=== PATIENT | female | born 1955 | race Caucasian/White ===

== ENCOUNTER 2018-02-06 16:08 | Emergency (ER) | payer BC ==
[2018-02-06 16:27] VITALS: BP 154/68; PULSE 85; TEMP 100; BMI 46.2
--- NOTE | 2018-02-06 16:33 | PDOC ---
Rapid Medical Evaluation Chief Complaint: Respiratory Time Seen by Provider: 02/06/18 16:30 Medical Evaluation: Allergies Allergy/AdvReac Type Severity Reaction Status Date / Time No Known Allergies Allergy Verified 02/06/18 16:24 Vital Signs Temp Pulse Resp BP Pulse Ox 100 F H 85 20 154/68 96 02/06/18 16:24 02/06/18 16:24 02/06/18 16:24 02/06/18 16:24 02/06/18 16:24 02/06/18 16:30 complain: Patient with h/o HTN on meds present with complains of 1 week h/o non- productive cough, chest tightness and fever. report saw PCP today and had fever of 102F and was told by PCP to come here exam: pt in no NAD. moderate diffused wheezing on lung exam. heart: RRR. abd: soft NT/ND order: chest x-rays, Tylenol 975mg PO for fever f/u patient will proceed to ED for further evaluation Discharge Disposition - Diagnosis Cough - Referrals - Patient Instructions - Post Discharge Activity
[2018-02-06] MEDS ORDERED: ACETAMINOPHEN 325 MG TABLET (FP) PO ONE (16:34)
[2018-02-06] MEDS ORDERED: ACETAMINOPHEN 325 MG TABLET (FP) ONE (18:37)
--- NOTE | 2018-02-06 20:38 | PDOC ---
History of Present Illness - General Chief Complaint: Respiratory Stated Complaint: PCP SENT/CHEST PAIN Time Seen by Provider: 02/06/18 16:30 History Source: Patient Exam Limitations: No Limitations - History of Present Illness Initial Comments: 02/06/18 20:32 Best Contact: PCP:Dr. Hernandez Pmhx: Hypertension Pshx: 2014/2015 right hip replacement, left hip replacement respectively/[place] Dr. Nino Oliver Allergies:NKDA FH:0 Social Hx: Cigarettes/ 0 Alcohol/ 0 Drugs/0 LMP:N/A 62-year-old female presents to the emergency department complaining of subjective fever/chills, body aches with productive coughing 1 week. Patient was seen by her PMD's associate today with a temperature of either 100.3 or 102.3 but was sent to the emergency department for chest x-ray. Patient states she feels a lot better since arriving to the emergency department and denies chills, headache, dizziness, lightheadedness, facial pains, earache, sore throat , nasal congestion, neck stiffness/pain, back pain, chest pain, shortness of breath, abdominal pains, flank pains, urinary symptoms: Frequency/urgency/ hesitancy, hematuria. Patient states she was given Tylenol on arrival to the ER and feels fine. 02/06/18 20:45 Timing/Duration: reports: just prior to arrival Past History - Past Medical History Allergies/Adverse Reactions: Allergies Allergy/AdvReac Type Severity Reaction Status Date / Time No Known Allergies Allergy Verified 02/06/18 16:24 Home Medications: Ambulatory Orders Olmesartan Medoxomil [Benicar -] 40 mg PO DAILY 01/13/15 Ascorbate Calcium [Vitamin C] 500 mg PO BID 03/22/16 Folic Acid 1 mg PO DAILY 03/22/16 Metoprolol Succinate [Toprol XL -] 25 mg PO DAILY #30 tab.sr.24h 03/30/16 Aspirin [ASA -] 325 mg PO DAILY@0800 tablet 04/08/16 Ferrous Sulfate [Feosol] 325 mg PO TID #90 tablet 04/08/16 Multivitamins [Multivit ([facility] Formulary)] 1 tab PO DAILY tab 04/08/16 Oxycodone HCl/Acetaminophen [Percocet 5-325 mg Tablet] 1 - 2 tab PO Q4H PRN #60 tablet MDD 8 04/08/16 Pantoprazole Sodium [Protonix -] 40 mg PO DAILY #40 tablet.ec 04/08/16 Sennosides/Docusate Sodium [Pericolace -] 1 tablet PO BID tablet 04/08/16 oxyCODONE SR [Oxycontin] 10 mg PO BID #30 tab.er.12h MDD 2 04/08/16 traMADol HCL [Ultram -] 50 mg PO Q4H PRN #90 tablet MDD 6 04/08/16 Anemia: No Asthma: No Cancer: No Cardiac Disorders: Yes (PRIOR TO R.THR-01/2015 HEART STOPPED SECONDARY TO RESPIRATORY ARREST 01/2015,) CVA: No COPD: No CHF: No (-CARDIAC WORK-UP NEGATIVE) Dementia: No Diabetes: Yes (DIET CONTROLLED) GI Disorders: No Disorders: No HTN: Yes Hypercholesterolemia: No Kidney Stones: Yes Liver Disease: No Seizures: No Thyroid Disease: No - Surgical History Abdominal Surgery: No Appendectomy: No Cardiac Surgery: No Cholecystectomy: No Lung Surgery: No Neurologic Surgery: No Orthopedic Surgery: Yes (06/2015 RIGHT HIP REPLACEMENT @ [facility]) - Suicide/Smoking/Psychosocial Hx Smoking History: Former smoker Have you smoked in the past 12 months: No Number of Cigarettes Smoked Daily: 0 If you are a former smoker, when did you quit?: OVER 35 YEARS AGO Information on smoking cessation initiated: No Hx Alcohol Use: No Drug/Substance Use Hx: No Substance Use Type: None Hx Substance Use Treatment: No Review of Systems - Review of Systems Able to Perform ROS?: Yes Comments:: 02/06/18 20:36 CONSTITUTIONAL: +fever/chills, generalized malaise Absent: diaphoresis, malaise, loss of appetite HEENT: Absent: rhinorrhea, nasal congestion, throat pain, throat swelling, difficulty swallowing, mouth swelling, ear pain, eye pain, visual Changes CARDIOVASCULAR: Absent: chest pain, loss of consciousness, palpitations, irregular heart rate, peripheral edema RESPIRATORY: +cough Absent: shortness of breath, dyspnea with exertion, orthopnea, wheezing, stridor , hemoptysis GASTROINTESTINAL: Absent: abdominal pain, abdominal distension, nausea, vomiting, diarrhea, constipation, melena, hematochezia GENITOURINARY: Absent: dysuria, frequency, urgency, hesitancy, hematuria, flank pain, genital pain MUSCULOSKELETAL: Absent: myalgia, arthralgia, joint swelling SKIN: Absent: rash, itching, pallor HEMATOLOGIC/IMMUNOLOGIC: Absent: easy bleeding, easy bruising, lymphadenopathy, frequent infections ENDOCRINE: Absent: unexplained weight gain, unexplained weight loss, heat intolerance, cold intolerance NEUROLOGIC: Absent: headache, focal weakness or paresthesias, dizziness, unsteady gait, seizure, mental status changes, bladder or bowel incontinence PSYCHIATRIC: Absent: anxiety, depression, suicidal or homicidal ideation, hallucinations. Is the patient limited Malay proficient: No *Physical Exam - Vital Signs Last Vital Signs Temp Pulse Resp BP Pulse Ox 100 F H 85 20 154/68 96 02/06/18 16:24 02/06/18 16:24 02/06/18 16:24 02/06/18 16:24 02/06/18 16:24 - Physical Exam Comments: 02/06/18 20:38 GENERAL: Well developed, well nourished. Awake and alert. No acute distress. HEENT: Normocephalic, atraumatic. PERRLA, EOMI. No conjunctival pallor. Sclera are non- icteric. Moist mucous membranes. Oropharynx is clear. NECK: Supple. Full ROM. No JVD. Carotid pulses 2+ and symmetric, without bruits. No thyromegaly. No lymphadenopathy. CARDIOVASCULAR: Regular rate and rhythm. No murmurs, rubs, or gallops. Distal pulses are 2+ and symmetric. PULMONARY: No evidence of respiratory distress. Lungs clear to auscultation bilaterally. No wheezing, rales or rhonchi. ABDOMINAL: Soft. Non-tender. Non-distended. No rebound or guarding. No organomegaly. Normoactive bowel sounds. MUSCULOSKELETAL Normal range of motion at all joints. No bony deformities or tenderness. No CVA tenderness. EXTREMITIES: No cyanosis. No clubbing. No edema. No calf tenderness. SKIN: Warm and dry. Normal capillary refill. No rashes. No jaundice. NEUROLOGICAL: Alert, awake, appropriate. Cranial nerves 2-12 intact. No deficits to light touch and temperature in face, upper extremities and lower extremities. No motor deficits in the in face, upper extremities and lower extremities. Normoreflexic in the upper and lower extremities. Normal speech. Toes are down- going bilaterally. Gait is normal without ataxia. PSYCHIATRIC: Cooperative. Good eye contact. Appropriate mood and affect. ED Treatment Course - Medications Given in the ED: ED Medications Discontinued Medications Generic Name Dose Route Start Last Admin Trade Name Carmelita PRN Reason Stop Dose Admin Acetaminophen 975 mg 02/06/18 16:34 02/06/18 18:42 Tylenol - PO 02/06/18 16:35 975 mg ONCE ONE Administration Progress Note - Progress Note Progress Note: 2038hrs: Patient adamantly refuses any blood work, IV, EKG. Patient states she only wanted a chest x-ray. Chest x-ray was clear except for old healed right- sided sixth and seventh rib patient states she feels fine now. Temperature/oral 98.1, taken by me. Patient was informed she has bronchitis and states she would rather follow with her PMD or return back to the ER for recurrent symptoms or any concerns. Patient is with her son Lázaro. Patient's son agrees with her plan. *DC/Admit/Observation/Transfer Diagnosis at time of Disposition: Cough, Bronchitis - Discharge Dispostion Disposition: ELOPED Condition at time of disposition: Stable Decision to Admit order: No - Referrals Referrals: Reuben Albrecht MD [Primary Care Provider] - - Patient Instructions Printed Discharge Instructions: DI for Acute Bronchitis Additional Instructions: You are refusing any blood work, EKG and observation in the emergency department. - Post Discharge Activity
== END 2018-02-06 22:03 | disposition left against medical advice (07) ==
LOC: JER 16:08
DX: J40 Bronchitis, not specified as acute or chronic (principal); R05 Cough
CPT/HCPCS: 71046-TC-FY; 99281-25

== ENCOUNTER 2020-04-04 12:44 | Emergency (ER) | payer BC, OTHER ==
[2020-04-04 12:55] VITALS: BMI 47.8
--- NOTE | 2020-04-04 13:08 | PDOC ---
History of Present Illness - General Chief Complaint: Vomiting/Diarrhea Stated Complaint: SENT BY DOC Time Seen by Provider: 04/04/20 13:08 - History of Present Illness Initial Comments: HPI: 64yo F with PMH of DM, HTN sent by her primary care provider for evaluation of fever, chills, nausea, vomiting, and diarrhea. Patient was in her usual state of health until she measured a fever of 102 this morning for which she took tylen ol. Has felt shaky and chattering of teeth. Endorses three episodes of biliious nonbloody vomiting as well as nonbloody brown loose stools. Without abdominal pain. Tolerated water, but not solid food. No cough, dysuria, or hematuria. Has had sick contacts (her and daughter) but they do not have the same symptoms as her. Does not think she ate anything unusual. No recent travel. PCP: Dr. Albrecht ROS: Constitutional: +fever, +chills HEENT: no throat pain, no dysphagia Cardiovascular: no chest pain, no palpitations Respiratory: no cough, no shortness of breath Gastrointestinal: +vomiting, +diarrhea Genitourinary: no dysuria, no hematuria Musculoskeletal: no myalgia, no arthralgia Skin: no rash, no itching Neurologic: no headache, no weakness Psych: no agitation, no anxiety PE: General: Awake, alert, and fully oriented, in no acute distress Head: No signs of trauma Eyes: EOMI, sclera anicteric ENT: Moist mucus membranes Neck: Normal ROM, supple Lungs: Lungs clear, Normal breath sounds Cardio: Regular rhythm, S1 and S2 present Abdomen: Soft, nontender. No guarding, no rebound, no masses, No CVA tenderness Extremities: Normal range of motion, Distal pulses present Skin: Warm, Dry, normal turgor Neurologic: Cranial nerves II through XII grossly intact. Normal speech ED Course/MDM: DDX including but not limited to UTI, COVID-19, gastroenteritis, DKA/HHS/hyperglycemia, PNA, anemia, metabolic derangement Labs CXR Fluids Zofran 04/04/20 13:08 CBC WBC 8.7 K/mm3 (4.0-10.0) 04/04/20 13:55 RBC 3.64 M/mm3 (3.60-5.2) 04/04/20 13:55 Hgb 11.0 GM/dL (10.7-15.3) 04/04/20 13:55 Hct 32.6 % (32.4-45.2) 04/04/20 13:55 MCV 89.6 fl (80-96) 04/04/20 13:55 MCH 30.3 pg (25.7-33.7) 04/04/20 13:55 MCHC 33.8 g/dl (32.0-36.0) 04/04/20 13:55 RDW 15.3 % (11.6-15.6) 04/04/20 13:55 Plt Count 113 K/MM3 (134-434) L 04/04/20 13:55 MPV 8.8 fl (7.5-11.1) 04/04/20 13:55 Absolute Neuts (auto) 7.9 K/mm3 (1.5-8.0) 04/04/20 13:55 Neutrophils % 90.9 % (42.8-82.8) H 04/04/20 13:55 Lymphocytes % 2.5 % (8-40) L D 04/04/20 13:55 Monocytes % 5.5 % (3.8-10.2) 04/04/20 13:55 Eosinophils % 0.2 % (0-4.5) 04/04/20 13:55 Basophils % 0.9 % (0-2.0) 04/04/20 13:55 Nucleated RBC % 0 % (0-0) 04/04/20 13:55 No leukocytosis or anemia CMP Sodium 135 mmol/L (136-145) L 04/04/20 13:55 Potassium 5.8 mmol/L (3.5-5.1) H 04/04/20 13:55 Chloride 105 mmol/L (98-107) 04/04/20 13:55 Carbon Dioxide 21 mmol/L (21-32) 04/04/20 13:55 Anion Gap 9 MMOL/L (8-16) 04/04/20 13:55 BUN 31.9 mg/dL (7-18) H 04/04/20 13:55 Creatinine 1.8 mg/dL (0.55-1.3) H 04/04/20 13:55 Est GFR (CKD-EPI)AfAm 34.12 04/04/20 13:55 Est GFR (CKD-EPI)NonAf 29.44 04/04/20 13:55 POC Glucometer 340 UNITS (80-120) 04/04/20 13:11 Random Glucose 335 mg/dL (74-106) H 04/04/20 13:55 Calcium 8.7 mg/dL (8.5-10.1) 04/04/20 13:55 Total Bilirubin 0.8 mg/dL (0.2-1) 04/04/20 13:55 AST 32 U/L (15-37) 04/04/20 13:55 ALT 18 U/L (13-61) 04/04/20 13:55 Alkaline Phosphatase 79 U/L (45-117) 04/04/20 13:55 Total Protein 6.8 g/dl (6.4-8.2) 04/04/20 13:55 Albumin 3.1 g/dl (3.4-5.0) L 04/04/20 13:55 Beta-Hydroxybutyrate 2.5 mg/dL (0.2-2.8) 04/04/20 13:55 K elevated, however hemolyzed; will repeat BMP Cr baseline No transaminitis Normal beta-hydroxybutyrate Laboratory Tests 04/04/20 13:20 Urine Color Yellow Urine Appearance Turbid Urine pH 5.0 Ur Specific Harlan 1.018 Urine Protein 3+ H Urine Glucose (UA) Trace Urine Ketones Negative Urine Blood 1+ H Urine Nitrite Positive H Urine Bilirubin Negative Urine Urobilinogen 0.2 Ur Leukocyte Esterase 2+ H Urine WBC (Auto) 3963 Urine RBC (Auto) 73 Urine Casts (Auto) 3 U Epithel Cells (Auto) >36 Urine Bacteria (Auto) >9,000 UA with infection; covered with rocephin Vital Signs Temp Pulse Resp BP Pulse Ox 98.7 F 95 H 18 135/69 95 04/04/20 14:30 04/04/20 12:52 04/04/20 12:52 04/04/20 12:52 04/04/20 12:52 Repeat temperature improved Pending po challenge Pending repeat BMP 04/04/20 16:[address] Albrecht who would like patient to follow up with him next week Patient amenable to this plan 04/04/20 17:20 Laboratory Tests 04/04/20 16:00 Sodium 137 Potassium 5.5 H Chloride 107 Carbon Dioxide 22 Anion Gap 8 BUN 31.0 H Creatinine 1.8 H Est GFR (CKD-EPI)AfAm 34.12 Est GFR (CKD-EPI)NonAf 29.44 Random Glucose 283 H Calcium 8.5 Repeat BMP with elevated K Lokelma given for hyperkalemia Patient passed po challenge Patient feeling better and asking to go home To follow up with primary care physician Antibiotics sent to pharmacy Return precautions Stable for discharge Past History - Medical History Allergies/Adverse Reactions: Allergies Allergy/AdvReac Type Severity Reaction Status Date / Time No Known Allergies Allergy Verified 04/04/20 12:51 Home Medications: Ambulatory Orders Olmesartan Medoxomil [Benicar -] 40 mg PO DAILY 01/13/15 Ascorbate Calcium [Vitamin C] 500 mg PO BID 03/22/16 Folic Acid 1 mg PO DAILY 03/22/16 Metoprolol Succinate [Toprol XL -] 25 mg PO DAILY #30 tab.sr.24h 03/30/16 Aspirin [ASA -] 325 mg PO DAILY@0800 tablet 04/08/16 Ferrous Sulfate [Feosol] 325 mg PO TID #90 tablet 04/08/16 Multivitamins [Multivit ([facility] Formul[facility])] 1 tab PO DAILY tab 04/08/16 Oxycodone HCl/Acetaminophen [Percocet 5-325 mg Tablet] 1 - 2 tab PO Q4H PRN #60 tablet MDD 8 04/08/16 Pantoprazole Sodium [Protonix -] 40 mg PO DAILY #40 tablet.ec 04/08/16 Sennosides/Docusate Sodium [Pericolace -] 1 tablet PO BID tablet 04/08/16 oxyCODONE SR [Oxycontin] 10 mg PO BID #30 tab.er.12h MDD 2 04/08/16 traMADol HCL [Ultram -] 50 mg PO Q4H PRN #90 tablet MDD 6 04/08/16 Azithromycin [Zithromax -] 250 mg PO UTDICT #6 tab 02/06/18 Cephalexin [Keflex] 500 mg PO BID #14 capsule 04/04/20 Anemia: No Asthma: No Cancer: No Cardiac Disorders: Yes (PRIOR TO R.THR-01/2015 HEART STOPPED SECONDARY TO RESPIRA TORY ARREST 01/2015,) CVA: No COPD: No CHF: No (-CARDIAC WORK-UP NEGATIVE) Dementia: No Diabetes: Yes (DIET CONTROLLED) GI Disorders: No Disorders: No HTN: Yes Hypercholesterolemia: No Kidney Stones: Yes Liver Disease: No Seizures: No Thyroid Disease: No - Surgical History Abdominal Surgery: No Appendectomy: No Cardiac Surgery: No Cholecystectomy: No Lung Surgery: No Neurologic Surgery: No Orthopedic Surgery: Yes (06/2015 RIGHT HIP REPLACEMENT @ [facility]) - Reproductive History Is Patient Now?: No - Psycho-Social/Smoking History Smoking History: Former smoker Have you smoked in the past 12 months: No Number of Cigarettes Smoked Daily: 0 If you are a former smoker, when did you quit?: OVER 35 YEARS AGO Information on smoking cessation initiated: No - Substance Abuse Hx (Audit-C & DAST Scrn) How often the patient has a drink containing alcohol: Never Score: In Men: 4 or > Positive; In Women: 3 or > Positive: 0 Screen Result (Pos requires Nsg. Audit-10AR): Negative In the last yr the pt used illegal drug/Rx for NonMed reason: No Score: Yes response is considered Positive: 0 Screen Result (Positive result requires Nsg. DAST-10): Negative *Physical Exam - Vital Signs Last Vital Signs Temp Pulse Resp BP Pulse Ox 100.3 F H 95 H 18 135/69 95 04/04/20 12:52 04/04/20 12:52 04/04/20 12:52 04/04/20 12:52 04/04/20 12:52 ED Treatment Course - LABORATORY CBC & Chemistry Diagram: 04/04/20 13:55 04/04/20 16:00 Discharge - Discharge Information Problems reviewed: Yes Clinical Impression/Diagnosis: Fever and chills UTI (urinary tract infection) Qualifiers: Urinary tract infection type: site unspecified Hematuria presence: with hematuria Qualified Code(s): N39.0 - Urinary tract infection, site not specified Condition: Stable Disposition: HOME - Additional Discharge Information Prescriptions: Cephalexin [Keflex] 500 mg PO BID #14 capsule - Follow up/Referral Referrals: Reuben Albrecht MD [Primary Care Provider] - - Patient Discharge Instructions Patient Printed Discharge Instructions: DI for Urinary Tract Infection (UTI), [facility]-Coronavirus Instructions, [facility] COVID-19 Isolation Protocol Additional Instructions: You came into the emergency department for fever, chills, vomiting, and diarrhea. Urinalysis shows you have a urinary tract infection. Labs were otherwise within normal limits. You were started on antibiotics while you were here. Antibiotics prescription has been sent to your pharmacy. Take as instructed. You can take [id number] tylenol as needed for your fever. Follow the instructions on the medication bottle. Make sure you do not take too much medicine. The maximum daily dose for tylenol is 4000mg/day. Follow up with your primary care physician within 72 hours to discuss this ED visit and for further evaluation of your symptoms. Your care is not complete until you do so. Call the office on Tuesday and make an appointment. Immediate medical attention is required if you experience: you develop severe abdominal pain, persistent vomiting, stop urinating, have chest pain/shortness of breath, or any new or concerning symptoms. If you think you have an emergency, call for medical help right away. - Post Discharge Activity
[2020-04-04] MEDS ORDERED: ONDANSETRON 4 MG/2 ML VIAL IVPUSH ONE (13:42)
[2020-04-04] MEDS ORDERED: SODIUM CHLORIDE 1,000 ML IV STA (13:42)
[2020-04-04] MEDS ORDERED: ACETAMINOPHEN 1000 MG/100 ML VIAL (NON FORMULARY) IVPB ONE (13:42)
[2020-04-04] MEDS ORDERED: ACETAMINOPHEN INJECTION 100 ML IVPB ONE (14:01)
[2020-04-04 14:03] LABS: VENOUS BASE EXCESS -5.4 mmol/L (-2-2); VENOUS O2 SATURATION 51.2 % (70-80); VENOUS PCO2 41.2 mmHg (38-52); VENOUS PH 7.313 (7.310-7.410)
[2020-04-04 14:03] LABS: EPI CELLS >36 /uL (0-25.1); HYALINE CASTS 3 /uL (0-3.1); URINE APPEARANCE TURBID; URINE BACTERIA >9,000 /uL (0-1359); URINE BILIRUBIN NEGATIVE (NEGATIVE); URINE COLOR YELLOW; URINE GLUCOSE (UA) TRACE (NEGATIVE); URINE KETONE NEGATIVE (NEGATIVE); URINE LEUK ESTERASE 2+ (NEGATIVE); URINE NITRITE POSITIVE (NEGATIVE); URINE PROTEIN 3+ (NEGATIVE); URINE RBC 73 /uL (0-23.9); URINE UROBILINOGEN 0.2 mg/dL (0.2-1.0); URINE WBC 3963 /uL (0-25.8)
[2020-04-04 14:05] LABS: BASO % 0.9 % (0-2.0); EOS % 0.2 % (0-4.5); HEMATOCRIT 32.6 % (32.4-45.2); LYMPH % 2.5 % (8-40); MCH 30.3 pg (25.7-33.7); MCHC 33.8 g/dl (32.0-36.0); MEAN CELL VOLUME 89.6 fl (80-96); MEAN PLT VOLUME 8.8 fl (7.5-11.1); MONO % 5.5 % (3.8-10.2); NEUT % 90.9 % (42.8-82.8); PLATELET COUNT 113 K/MM3 (134-434); RBC 3.64 M/mm3 (3.60-5.2); RDW 15.3 % (11.6-15.6); WHITE BLOOD COUNT 8.7 K/mm3 (4.0-10.0)
[2020-04-04] MEDS ORDERED: CEFTRIAXONE 1,000 MG in DEXTROSE 5%-WATER - 50 ML IVPB ONE (14:12)
[2020-04-04 14:33] LABS: ALBUMIN 3.1 g/dl (3.4-5.0); BILIRUBIN,TOTAL 0.8 mg/dL (0.2-1); BLOOD UREA NITROGEN 31.9 mg/dL (7-18); CALCIUM 8.7 mg/dL (8.5-10.1); CREATININE 1.8 mg/dL (0.55-1.3); POTASSIUM 5.8 mmol/L (3.5-5.1); TOT PROT 6.8 g/dl (6.4-8.2)
[2020-04-04] MEDS ORDERED: CEFTRIAXONE 1 GM/50 ML BAG ONE (14:45)
--- NOTE | 2020-04-04 15:11 | PDOC ---
Documentation entered by Jaime Salcido SCRIBE, acting as scribe for Gilson Lara MD. Gilson Lara MD: This documentation has been prepared by the Omari obregon Angel, SCRIBE, under my direction and personally reviewed by me in its entirety. I confirm that the documentation accurately reflects all work, treatment, procedures, and medical decision making performed by me. Attending Attestation - Resident Resident Name: NasreenChhayaMame - ED Attending Attestation I have performed the following: I have examined & evaluated the patient, The case was reviewed & discussed with the resident, I agree w/resident's findings & plan, Exceptions are as noted - HPI HPI: 04/04/20 14:28 The patient is a 64 year old female with a significant past medical history of DM and HTN who was sent into the ED by her PCP for evaluation of fever/chills and N/V/D. Patient states she was feeling well until yesterday. This morning she woke up feeling some chills she also felt very nauseous and had a bowel movement of loose stool. The vomiting was nonbilious nonbloody, her stool was also nonbloody non-melanotic. She denies any other symptoms including cough, chest pain, abdominal pain, back pain, dysuria, frequency. Patient notes that her daughter felt a little sick several days ago with some abdominal discomfort. No recent travel. 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 - Physicial Exam PE: 04/04/20 15:10 GENERAL: The patient is awake, alert, and fully oriented, Nontoxic - in no acute distress. HEAD: Normocephalic, atraumatic. EYES: extraocular movements intact, sclera anicteric, conjunctiva clear. ENT: Normal voice, Moist mucous membranes. NECK: Normal range of motion, supple LUNGS: Breath sounds equal, clear to auscultation bilaterally. No wheezes, no rhonchi, no rales. HEART: Regular rate and rhythm, normal S1 and S2 without murmur, rub or gallop. ABDOMEN: Soft, nontender, No guarding, no rebound. No CVA tenderness EXTREMITIES: Normal range of motion, no edema. NEUROLOGICAL: No facial assymetry, Normal speech, PSYCH: Normal mood, normal affect. SKIN: Warm, Dry, normal turgor, - Medical Decision Making 04/04/20 15:10 Her symptoms may be due to gastroenteritis however will obtain blood work, urine, to seek another cause of her fever. 04/04/20 15:10 Patient's labs were reviewed her urine also consistent with UTI We will treat her with antibiotics will hydrate her with fluids potassium slightly elevated cr at baseline will give k binder and have pt fu with her doctor to have this rechecked Discharge - Discharge Information Problems reviewed: Yes Clinical Impression/Diagnosis: Fever and chills UTI (urinary tract infection) Qualifiers: Urinary tract infection type: site unspecified Hematuria presence: with hematuria Qualified Code(s): N39.0 - Urinary tract infection, site not specified Condition: Stable Disposition: HOME - Additional Discharge Information Prescriptions: Cephalexin [Keflex] 500 mg PO BID #14 capsule - Follow up/Referral Referrals: Reuben Albrecht MD [Primary Care Provider] - - Patient Discharge Instructions Patient Printed Discharge Instructions: DI for Urinary Tract Infection (UTI), [facility]-Coronavirus Instructions, [facility] COVID-19 Isolation Protocol Additional Instructions: You came into the emergency department for fever, chills, vomiting, and diarrhea. Urinalysis shows you have a urinary tract infection. Labs were otherwise within normal limits. You were started on antibiotics while you were here. Antibiotics prescription has been sent to your pharmacy. Take as instructed. You can take [id number] tylenol as needed for your fever. Follow the instructions on the medication bottle. Make sure you do not take too much medicine. The maximum daily dose for tylenol is 4000mg/day. Follow up with your primary care physician within 72 hours to discuss this ED visit and for further evaluation of your symptoms. Your care is not complete until you do so. Call the office on Tuesday and make an appointment. Immediate medical attention is required if you experience: you develop severe abdominal pain, persistent vomiting, stop urinating, have chest pain/shortness of breath, or any new or concerning symptoms. If you think you have an emergency, call for medical help right away. - Post Discharge Activity
[2020-04-04 17:06] LABS: CALCIUM 8.5 mg/dL (8.5-10.1); CREATININE 1.8 mg/dL (0.55-1.3); POTASSIUM 5.5 mmol/L (3.5-5.1)
[2020-04-04 17:28] VITALS: BP 151/71; PULSE 80; TEMP 99.4
[2020-04-04] MEDS ORDERED: SODIUM ZIRCONIUM CYCLOSILICATE (LOKELMA) 5 GM PACKET PO ONE (17:42)
[2020-04-05] MEDS ORDERED: SODIUM ZIRCONIUM CYCLOSILICATE (LOKELMA) 5 GM PACKET PO ONE (17:17)
== END 2020-04-04 17:50 | disposition home or self-care (01) ==
LOC: JER 12:44
PROC: 3E03329 Introduction of Other Anti-infective into Peripheral Vein, Percutaneous Approach (ICD-10-PCS; principal; 2020-04-04)
PROC: 3E033GC Introduction of Other Therapeutic Substance into Peripheral Vein, Percutaneous Approach (ICD-10-PCS; 2020-04-04)
PROC: 3E0337Z Introduction of Electrolytic and Water Balance Substance into Peripheral Vein, Percutaneous Approach (ICD-10-PCS; 2020-04-04)
DX: R50.9 Fever, unspecified (principal); N39.0 Urinary tract infection, site not specified
CPT/HCPCS: 36415; 71046-TC-FY; 80048; 80053; 81003; 82010; 82803; 82962; 85025; 87077; 87086; 87186; 99285-25; J0131; U0003

== ENCOUNTER 2022-02-17 10:46 | Inpatient (IN) | payer BC, OTHER ==
[2022-02-17 12:24] LABS: BASO % 0.6 % (0-2.0); EOS % 2.4 % (0-4.5); HEMATOCRIT 24.8 % (32.4-45.2); HEMOGLOBIN 8.2 GM/dL (10.7-15.3); MCH 25.1 pg (25.7-33.7); MCHC 33.1 g/dl (32.0-36.0); MEAN CELL VOLUME 75.8 fl (80-96); MEAN PLT VOLUME 7.8 fl (7.5-11.1); MONO % 4.7 % (3.8-10.2); NEUT % 83.3 % (42.8-82.8); PLATELET COUNT 175 10^3/uL (134-434); RBC 3.28 M/mm3 (3.60-5.2); RDW 17.3 % (11.6-15.6); WHITE BLOOD COUNT 8.7 K/mm3 (4.0-10.0)
[2022-02-17 12:36] LABS: ALBUMIN 2.7 g/dl (3.4-5.0); CALCIUM 8.3 mg/dL (8.5-10.1); MAGNESIUM 1.7 mg/dL (1.8-2.4)
[2022-02-17 12:37] LABS: BLOOD UREA NITROGEN 42.7 mg/dL (7-18)
[2022-02-17 12:40] LABS: CREATININE 1.9 mg/dL (0.55-1.3)
[2022-02-17 12:41] LABS: BILIRUBIN,TOTAL 0.3 mg/dL (0.2-1); TOT PROT 6.2 g/dl (6.4-8.2)
[2022-02-17 12:49] LABS: N-TERMINAL BNP 1351.6 pg/ml (5-125)
[2022-02-17] MEDS ORDERED: LOSARTAN POTASSIUM 50 MG TABLET PO SCH (20:45)
[2022-02-17] MEDS ORDERED: ATORVASTATIN CA 40 MG TABLET (FP) PO SCH (22:00)
[2022-02-17] MEDS ORDERED: ENOXAPARIN NA (PORCINE) 40 MG/0.4 ML DISP.SYRIN SQ SCH (22:00)
[2022-02-17] MEDS ORDERED: DOCUSATE SODIUM 100 MG CAPSULE (FP) PO ONE (22:17)
[2022-02-17] MEDS ORDERED: FERROUS SO4 325 MG TABLET (FP) ONE (22:17)
[2022-02-17] MEDS ORDERED: LOSARTAN POTASSIUM 50 MG TABLET ONE (22:17)
[2022-02-17] MEDS ORDERED: ATORVASTATIN CA 40 MG TABLET (FP) ONE (22:17)
[2022-02-17] MEDS: FERROUS SO4 325 MG TABLET (FP) PO SCH (22:21)
[2022-02-17] MEDS: DOCUSATE SODIUM 100 MG CAPSULE (FP) PO SCH (22:21)
[2022-02-17] MEDS ORDERED: VALSARTAN 80 MG TABLET PO SCH (22:30)
[2022-02-17] MEDS: INSULIN SLIDING SCALE (NOVOLOG) 1 VIAL SQ SCH (23:51)
[2022-02-18 00:09] VITALS: BMI 42.4
[2022-02-18] MEDS: FERROUS SO4 325 MG TABLET (FP) PO SCH ×2 (06:29→13:32)
[2022-02-18] MEDS: DOCUSATE SODIUM 100 MG CAPSULE (FP) PO SCH ×2 (06:30→13:07)
[2022-02-18] MEDS: HEPARIN NA (PORCINE) 5,000 UNITS/ML 1ML VIAL SQ SCH ×2 (06:30→13:31)
[2022-02-18] MEDS: INSULIN SLIDING SCALE (NOVOLOG) 1 VIAL SQ SCH ×3 (06:30→16:41)
[2022-02-18] MEDS ORDERED: metoPROLOL SUCCINATE 25 MG TAB.SR.24H (FP) PO SCH ×2 (08:30→10:00)
[2022-02-18] MEDS ORDERED: VALSARTAN 80 MG TABLET PO SCH ×2 (08:30→10:00)
[2022-02-18 08:42] LABS: HEMATOCRIT 24.5 % (32.4-45.2); HEMOGLOBIN 8.1 GM/dL (10.7-15.3); MCH 25.2 pg (25.7-33.7); MCHC 33.1 g/dl (32.0-36.0); MEAN CELL VOLUME 76.2 fl (80-96); MEAN PLT VOLUME 7.8 fl (7.5-11.1); PLATELET COUNT 179 10^3/uL (134-434); RBC 3.22 M/mm3 (3.60-5.2); RDW 17.3 % (11.6-15.6); WHITE BLOOD COUNT 7.9 K/mm3 (4.0-10.0)
[2022-02-18] MEDS ORDERED: CHOLECALCIFEROL (VIT D3) 400 UNIT (10 MCG) TABLET PO SCH (10:00)
[2022-02-18 10:14] LABS: CALCIUM 8.7 mg/dL (8.5-10.1)
[2022-02-18 10:15] LABS: ALBUMIN 2.7 g/dl (3.4-5.0); BLOOD UREA NITROGEN 38.3 mg/dL (7-18); MAGNESIUM 1.9 mg/dL (1.8-2.4)
[2022-02-18 10:18] LABS: CREATININE 1.7 mg/dL (0.55-1.3); PHOSPHOROUS 3.5 mg/dL (2.5-4.9)
[2022-02-18 10:19] LABS: BILIRUBIN,TOTAL 0.3 mg/dL (0.2-1); TOT PROT 6.1 g/dl (6.4-8.2)
[2022-02-18] MEDS ORDERED: amLODIPine BESYLATE 5 MG TABLET (FP) PO SCH (14:45)
[2022-02-18 14:48] VITALS: PULSE 67
[2022-02-18 18:06] VITALS: RESP 18
[2022-02-18 18:46] VITALS: BP 168/79; TEMP 98.5
== END 2022-02-18 21:36 | disposition home or self-care (01) | DRG 310 ==
LOC: JER 10:46 → JERBED 18:36 → OBSVTOIN 20:18 → J4W 23:46
PROVIDERS: ADMIT Internal Medicine; ATTEND Internal Medicine
DX: I47.1 Supraventricular tachycardia (principal); E11.9 Type 2 diabetes mellitus without complications; I10 Essential (primary) hypertension; E78.5 Hyperlipidemia, unspecified
CPT/HCPCS: 36415; 71045-TC-FY; 74176-TC; 80053; 82728; 82962; 83036; 83540; 83550; 83615; 83735; 83880; 84100; 84443; 84466; 84484; 85025; 85027; 85045; 93005; 93010; 93306-TC; 99285-25; C9803-CS; G0378; J1644; U0003; U0005

== ENCOUNTER 2022-03-10 04:29 | Day surgery (SDC) | payer OTHER ==
[2022-03-09 11:12] VITALS: BMI 42.3
[2022-03-10 13:07] VITALS: BP 135/85; PULSE 85; RESP 20; TEMP 97.2
== END 2022-03-10 12:10 | disposition home or self-care (01) ==
LOC: JRADIR 04:29
PROVIDERS: ATTEND Internal Medicine
PROC: 0KBN3ZX Excision of Right Hip Muscle, Percutaneous Approach, Diagnostic (ICD-10-PCS; principal; 2022-03-10)
DX: R22.2 Localized swelling, mass and lump, trunk (principal)
CPT/HCPCS: 20206; 88108; 88305-TC; 88313-TC

== ENCOUNTER 2022-04-14 10:08 | Inpatient (IN) | payer OTHER ==
[2022-04-14 12:43] LABS: BASO % 0.8 % (0-2.0); EOS % 2.5 % (0-4.5); HEMATOCRIT 24.4 % (32.4-45.2); HEMOGLOBIN 7.8 GM/dL (10.7-15.3); LYMPH % 11.1 % (8-40); MCH 25.3 pg (25.7-33.7); MCHC 32.1 g/dl (32.0-36.0); MEAN CELL VOLUME 78.9 fl (80-96); MEAN PLT VOLUME 7.7 fl (7.5-11.1); MONO % 4.9 % (3.8-10.2); NEUT % 80.7 % (42.8-82.8); PLATELET COUNT 205 10^3/uL (134-434); RBC 3.09 M/mm3 (3.60-5.2); RDW 18.4 % (11.6-15.6); WHITE BLOOD COUNT 9.7 K/mm3 (4.0-10.0)
[2022-04-14 13:11] LABS: ACTIVATED PTT 27.5 SECONDS (25.2-36.5); INR 1.1 (0.83-1.09); PROTHROMBIN TIME (PATIENT) 12.7 SEC (9.7-13.0)
[2022-04-14 13:12] LABS: CALCIUM 8.6 mg/dL (8.5-10.1)
[2022-04-14 13:14] LABS: ALBUMIN 2.6 g/dl (3.4-5.0); BLOOD UREA NITROGEN 36.3 mg/dL (7-18)
[2022-04-14 13:16] LABS: CREATININE 1.9 mg/dL (0.55-1.3)
[2022-04-14 13:19] LABS: BILIRUBIN,TOTAL 0.3 mg/dL (0.2-1)
[2022-04-14] MEDS ORDERED: FUROSEMIDE 40 MG/4 ML INJECTABLE VIAL IVPUSH ONE (14:33)
[2022-04-14] MEDS ORDERED: FUROSEMIDE 40 MG/4 ML INJECTABLE VIAL ONE (14:50)
[2022-04-14] MEDS ORDERED: HEPARIN NA (PORCINE) 5,000 UNITS/ML 1ML VIAL ONE (15:59)
[2022-04-14] MEDS ORDERED: ASPIRIN 81 MG CHEWABLE TABLETS ONE (15:59)
[2022-04-14] MEDS: ASPIRIN 81 MG CHEWABLE TABLETS PO SCH (16:02)
[2022-04-14] MEDS: HEPARIN NA (PORCINE) 5,000 UNITS/ML 1ML VIAL SQ SCH ×2 (16:02→21:48)
[2022-04-14] MEDS ORDERED: INSULIN SLIDING SCALE (NOVOLOG) 1 VIAL SQ SCH (16:30)
[2022-04-14 16:37] VITALS: BMI 44.8
[2022-04-14] MEDS: INSULIN SLIDING SCALE (NOVOLOG) 1 VIAL SQ SCH ×2 (16:55→21:52)
[2022-04-14] MEDS: VALSARTAN 40 MG TABLET PO SCH (21:49)
[2022-04-14] MEDS ORDERED: ATORVASTATIN CA 40 MG TABLET (FP) PO SCH (22:00)
[2022-04-15] MEDS: HEPARIN NA (PORCINE) 5,000 UNITS/ML 1ML VIAL SQ SCH ×3 (06:32→21:55)
[2022-04-15] MEDS: INSULIN SLIDING SCALE (NOVOLOG) 1 VIAL SQ SCH ×4 (06:36→23:36)
[2022-04-15] MEDS ORDERED: FUROSEMIDE 40 MG/4 ML INJECTABLE VIAL IVPUSH SCH (10:00)
[2022-04-15] MEDS: ASPIRIN 81 MG CHEWABLE TABLETS PO SCH (11:04)
[2022-04-15] MEDS: VALSARTAN 40 MG TABLET PO SCH ×2 (11:04→21:55)
[2022-04-15 11:30] LABS: BASO % 0.7 % (0-2.0); EOS % 2.5 % (0-4.5); HEMATOCRIT 24.3 % (32.4-45.2); LYMPH % 10.9 % (8-40); MCH 25.8 pg (25.7-33.7); MEAN PLT VOLUME 7.4 fl (7.5-11.1); MONO % 5.8 % (3.8-10.2); NEUT % 80.1 % (42.8-82.8); PLATELET COUNT 201 10^3/uL (134-434); RBC 3.12 M/mm3 (3.60-5.2); RDW 18.7 % (11.6-15.6); WHITE BLOOD COUNT 8.6 K/mm3 (4.0-10.0)
[2022-04-15 12:08] LABS: CALCIUM 8.7 mg/dL (8.5-10.1)
[2022-04-15 12:12] LABS: CREATININE 1.8 mg/dL (0.55-1.3)
[2022-04-15] MEDS: ATORVASTATIN CA 40 MG TABLET (FP) PO SCH (21:55)
[2022-04-16] MEDS: HEPARIN NA (PORCINE) 5,000 UNITS/ML 1ML VIAL SQ SCH ×3 (05:35→21:08)
[2022-04-16] MEDS: INSULIN SLIDING SCALE (NOVOLOG) 1 VIAL SQ SCH ×4 (06:48→21:09)
[2022-04-16 07:41] LABS: HEMATOCRIT 23.3 % (32.4-45.2); HEMOGLOBIN 7.6 GM/dL (10.7-15.3); MCH 25.5 pg (25.7-33.7); MCHC 32.7 g/dl (32.0-36.0); MEAN CELL VOLUME 78.1 fl (80-96); MEAN PLT VOLUME 7.6 fl (7.5-11.1); PLATELET COUNT 183 10^3/uL (134-434); RBC 2.98 M/mm3 (3.60-5.2); RDW 18.1 % (11.6-15.6); WHITE BLOOD COUNT 7.6 K/mm3 (4.0-10.0)
[2022-04-16 08:11] LABS: ALBUMIN 2.4 g/dl (3.4-5.0); CALCIUM 8.4 mg/dL (8.5-10.1); MAGNESIUM 1.9 mg/dL (1.8-2.4)
[2022-04-16 08:13] LABS: PHOSPHOROUS 3.2 mg/dL (2.5-4.9)
[2022-04-16 08:14] LABS: BILIRUBIN,TOTAL 0.4 mg/dL (0.2-1); CREATININE 2.1 mg/dL (0.55-1.3); TOT PROT 5.8 g/dl (6.4-8.2)
[2022-04-16] MEDS ORDERED: FUROSEMIDE 40 MG/4 ML INJECTABLE VIAL IVPUSH SCH (10:00)
[2022-04-16] MEDS: ASPIRIN 81 MG CHEWABLE TABLETS PO SCH (10:01)
[2022-04-16] MEDS: VALSARTAN 40 MG TABLET PO SCH ×2 (10:01→21:08)
[2022-04-16] MEDS: metoPROLOL SUCCINATE 25 MG TAB.SR.24H (FP) PO SCH (19:08)
[2022-04-16] MEDS: ATORVASTATIN CA 40 MG TABLET (FP) PO SCH (21:08)
[2022-04-17] MEDS: INSULIN SLIDING SCALE (NOVOLOG) 1 VIAL SQ SCH ×4 (06:31→21:35)
[2022-04-17] MEDS: HEPARIN NA (PORCINE) 5,000 UNITS/ML 1ML VIAL SQ SCH ×3 (06:31→21:34)
[2022-04-17] MEDS: ASPIRIN 81 MG CHEWABLE TABLETS PO SCH (09:37)
[2022-04-17 15:37] LABS: CALCIUM 8.5 mg/dL (8.5-10.1)
[2022-04-17 15:39] LABS: BLOOD UREA NITROGEN 42.9 mg/dL (7-18)
[2022-04-17 15:41] LABS: CREATININE 2.4 mg/dL (0.55-1.3)
[2022-04-17] MEDS: metoPROLOL SUCCINATE 25 MG TAB.SR.24H (FP) PO SCH (17:24)
[2022-04-17] MEDS: ATORVASTATIN CA 40 MG TABLET (FP) PO SCH (21:34)
[2022-04-18] MEDS: HEPARIN NA (PORCINE) 5,000 UNITS/ML 1ML VIAL SQ SCH ×3 (06:39→22:42)
[2022-04-18] MEDS: INSULIN SLIDING SCALE (NOVOLOG) 1 VIAL SQ SCH ×4 (06:41→22:42)
[2022-04-18 08:01] LABS: BASO % 0.7 % (0-2.0); EOS % 3.1 % (0-4.5); HEMATOCRIT 23.4 % (32.4-45.2); HEMOGLOBIN 7.8 GM/dL (10.7-15.3); LYMPH % 13.1 % (8-40); MCH 25.8 pg (25.7-33.7); MCHC 33.3 g/dl (32.0-36.0); MEAN CELL VOLUME 77.4 fl (80-96); MEAN PLT VOLUME 7.6 fl (7.5-11.1); NEUT % 77.1 % (42.8-82.8); PLATELET COUNT 197 10^3/uL (134-434); RBC 3.03 M/mm3 (3.60-5.2); RDW 18.1 % (11.6-15.6); WHITE BLOOD COUNT 7.8 K/mm3 (4.0-10.0)
[2022-04-18 08:13] LABS: CALCIUM 8.4 mg/dL (8.5-10.1)
[2022-04-18 08:14] LABS: BLOOD UREA NITROGEN 45.6 mg/dL (7-18); MAGNESIUM 1.9 mg/dL (1.8-2.4)
[2022-04-18 08:17] LABS: CREATININE 2.2 mg/dL (0.55-1.3)
[2022-04-18] MEDS: ASPIRIN 81 MG CHEWABLE TABLETS PO SCH (09:52)
[2022-04-18] MEDS: FUROSEMIDE 40 MG TABLET (FP) PO SCH (11:26)
[2022-04-18 15:02] VITALS: RESP 18
[2022-04-18] MEDS: metoPROLOL SUCCINATE 25 MG TAB.SR.24H (FP) PO SCH (17:11)
[2022-04-18] MEDS: ATORVASTATIN CA 40 MG TABLET (FP) PO SCH (22:42)
[2022-04-19] MEDS: HEPARIN NA (PORCINE) 5,000 UNITS/ML 1ML VIAL SQ SCH ×2 (05:58→14:08)
[2022-04-19] MEDS: INSULIN SLIDING SCALE (NOVOLOG) 1 VIAL SQ SCH ×3 (06:09→17:07)
[2022-04-19 07:20] LABS: HEMATOCRIT 24.3 % (32.4-45.2); HEMOGLOBIN 7.9 GM/dL (10.7-15.3); MCH 25.5 pg (25.7-33.7); MCHC 32.5 g/dl (32.0-36.0); MEAN CELL VOLUME 78.5 fl (80-96); MEAN PLT VOLUME 7.9 fl (7.5-11.1); PLATELET COUNT 202 10^3/uL (134-434); WHITE BLOOD COUNT 7.8 K/mm3 (4.0-10.0)
[2022-04-19 07:44] LABS: CALCIUM 8.8 mg/dL (8.5-10.1)
[2022-04-19 07:45] LABS: ALBUMIN 2.6 g/dl (3.4-5.0); BLOOD UREA NITROGEN 49.5 mg/dL (7-18); MAGNESIUM 1.9 mg/dL (1.8-2.4)
[2022-04-19 07:48] LABS: CREATININE 2.3 mg/dL (0.55-1.3); PHOSPHOROUS 4.2 mg/dL (2.5-4.9)
[2022-04-19 07:49] LABS: BILIRUBIN,TOTAL 0.4 mg/dL (0.2-1); TOT PROT 6.1 g/dl (6.4-8.2)
[2022-04-19 09:13] VITALS: BP 143/60; PULSE 68; TEMP 98.6
[2022-04-19] MEDS: VALSARTAN 40 MG TABLET PO SCH (09:55)
[2022-04-19] MEDS: ASPIRIN 81 MG CHEWABLE TABLETS PO SCH (09:55)
[2022-04-19] MEDS: FUROSEMIDE 40 MG TABLET (FP) PO SCH (09:55)
== END 2022-04-19 17:00 | disposition home or self-care (01) | DRG 291 ==
LOC: JER 10:08 → JERBED 15:10 → J7W 16:20 → J4W 04-15 18:49
PROVIDERS: ADMIT Internal Medicine; ATTEND Internal Medicine
DX: I11.0 Hypertensive heart disease with heart failure (principal); I50.33 Acute on chronic diastolic (congestive) heart failure; I47.1 Supraventricular tachycardia; Z68.41 Body mass index [BMI] 40.0-44.9, adult; E11.9 Type 2 diabetes mellitus without complications; E78.5 Hyperlipidemia, unspecified; D50.9 Iron deficiency anemia, unspecified; I25.10 Atherosclerotic heart disease of native coronary artery without angina pectoris; E66.9 Obesity, unspecified
CPT/HCPCS: 0241U-QW; 36415; 71045-TC-FY; 80048; 80053; 82728; 82962; 83540; 83550; 83735; 83880; 84100; 84443; 84484; 85025; 85027; 85610; 85730; 93005; 93010; 99285-25; J1644

== ENCOUNTER 2023-12-25 16:40 | Emergency (ER) | payer OTHER ==
[2023-12-25 16:49] VITALS: BP 132/72; PULSE 76; RESP 18; TEMP 98.2; BMI 44.2
== END 2023-12-25 19:21 | disposition home or self-care (01) ==
LOC: JERFT 16:40
DX: M71.22 Synovial cyst of popliteal space [Baker], left knee (principal); M25.562 Pain in left knee; M17.12 Unilateral primary osteoarthritis, left knee
CPT/HCPCS: 73562-TC-LT-FY; 93971-TC; 99284-25

== ENCOUNTER 2024-05-04 15:31 | Inpatient (IN) | payer OTHER ==
[2024-05-04 15:39] VITALS: BMI 42.8
[2024-05-04 17:10] LABS: BASO % 0.9 % (0-2.0); EOS % 4.6 % (0-4.5); HEMATOCRIT 29.7 % (32.4-45.2); HEMOGLOBIN 9.9 GM/dL (10.7-15.3); LYMPH % 15.1 % (8-40); MCH 28.1 pg (25.7-33.7); MCHC 33.3 g/dl (32.0-36.0); MEAN CELL VOLUME 84.4 fl (80-96); MEAN PLT VOLUME 8.2 fl (7.5-11.1); MONO % 5.4 % (3.8-10.2); PLATELET COUNT 179 10^3/uL (134-434); RBC 3.52 M/mm3 (3.60-5.2); RDW 14.9 % (11.6-15.6); WHITE BLOOD COUNT 7.8 K/mm3 (4.0-10.0)
[2024-05-04 17:12] LABS: EPI CELLS 22 /uL (0-25.1); HYALINE CASTS 0 /uL (0-3.1); PH,URINE 5.5 (5.0-8.0); URINE APPEARANCE CLOUDY; URINE BACTERIA >9,000 /uL (0-1359); URINE BILIRUBIN NEGATIVE (NEGATIVE); URINE COLOR YELLOW; URINE GLUCOSE (UA) TRACE (NEGATIVE); URINE KETONE NEGATIVE (NEGATIVE); URINE LEUK ESTERASE 2+ (NEGATIVE); URINE NITRITE NEGATIVE (NEGATIVE); URINE PROTEIN 3+ (NEGATIVE); URINE RBC 22 /uL (0-23.9); URINE UROBILINOGEN 0.2 mg/dL (0.2-1.0); URINE WBC 1055 /uL (0-25.8)
[2024-05-04 17:30] LABS: CALCIUM 8.4 mg/dL (8.5-10.1)
[2024-05-04 17:31] LABS: ALBUMIN 3.3 g/dl (3.4-5.0); BLOOD UREA NITROGEN 63.8 mg/dL (7-18)
[2024-05-04] MEDS ORDERED: ERTAPENEM SODIUM 1 GM VIAL ONE (17:34)
[2024-05-04 17:35] LABS: BILIRUBIN,TOTAL 0.3 mg/dL (0.2-1); TOT PROT 6.6 g/dl (6.4-8.2)
[2024-05-04] MEDS: ERTAPENEM SODIUM 1 GM in SODIUM CHLORIDE 50 ML IVPB ONE (17:40)
[2024-05-04 18:23] LABS: POTASSIUM 4.6 mmol/L (3.5-5.1)
[2024-05-04] MEDS ORDERED: hydrALAZINE HCL 10 MG TABLET ONE (23:33)
[2024-05-04] MEDS: hydrALAZINE HCL 10 MG TABLET PO ONE (23:41)
[2024-05-05] MEDS ORDERED: HEPARIN NA (PORCINE) 5,000 UNITS/ML 1ML VIAL ONE ×2 (06:14→14:46)
[2024-05-05] MEDS: INSULIN ASPART SLIDING SCALE (NOVOLOG) 1 VIAL SQ SCH (06:17)
[2024-05-05] MEDS: HEPARIN NA (PORCINE) 5,000 UNITS/ML 1ML VIAL SQ SCH (06:17)
[2024-05-05] MEDS: ERTAPENEM SODIUM 0.5 GM in SODIUM CHLORIDE 50 ML IVPB SCH (11:13)
[2024-05-05 11:15] LABS: BASO % 0.7 % (0-2.0); EOS % 4.5 % (0-4.5); HEMATOCRIT 28.9 % (32.4-45.2); HEMOGLOBIN 9.7 GM/dL (10.7-15.3); LYMPH % 12.9 % (8-40); MCH 28.3 pg (25.7-33.7); MCHC 33.4 g/dl (32.0-36.0); MEAN CELL VOLUME 84.6 fl (80-96); MEAN PLT VOLUME 8.4 fl (7.5-11.1); MONO % 4.6 % (3.8-10.2); NEUT % 77.3 % (42.8-82.8); PLATELET COUNT 156 10^3/uL (134-434); RBC 3.41 M/mm3 (3.60-5.2); RDW 14.9 % (11.6-15.6); WHITE BLOOD COUNT 7.7 K/mm3 (4.0-10.0)
[2024-05-05 11:43] LABS: POTASSIUM 4.3 mmol/L (3.5-5.1)
[2024-05-05 11:46] LABS: ALBUMIN 3.2 g/dl (3.4-5.0)
[2024-05-05 11:49] LABS: BLOOD UREA NITROGEN 61.3 mg/dL (7-18); CALCIUM 8.6 mg/dL (8.5-10.1); MAGNESIUM 1.6 mg/dL (1.8-2.4)
[2024-05-05 11:53] LABS: CREATININE 3.6 mg/dL (0.55-1.3); PHOSPHOROUS 4.8 mg/dL (2.5-4.9)
[2024-05-05 11:54] LABS: BILIRUBIN,TOTAL 0.4 mg/dL (0.2-1); TOT PROT 6.3 g/dl (6.4-8.2)
[2024-05-06 10:27] LABS: BASO % 0.8 % (0-2.0); EOS % 4.5 % (0-4.5); HEMATOCRIT 27.7 % (32.4-45.2); HEMOGLOBIN 9.4 GM/dL (10.7-15.3); LYMPH % 12.9 % (8-40); MCH 28.9 pg (25.7-33.7); MCHC 33.9 g/dl (32.0-36.0); MEAN CELL VOLUME 85.2 fl (80-96); MEAN PLT VOLUME 8.6 fl (7.5-11.1); MONO % 5.2 % (3.8-10.2); NEUT % 76.6 % (42.8-82.8); PLATELET COUNT 145 10^3/uL (134-434); RBC 3.25 M/mm3 (3.60-5.2); RDW 14.6 % (11.6-15.6); WHITE BLOOD COUNT 7.3 K/mm3 (4.0-10.0)
[2024-05-06 11:26] LABS: BLOOD UREA NITROGEN 57.1 mg/dL (7-18); CALCIUM 8.8 mg/dL (8.5-10.1); POTASSIUM 4.3 mmol/L (3.5-5.1)
[2024-05-06 11:29] LABS: CREATININE 3.4 mg/dL (0.55-1.3)
[2024-05-06] MEDS: ACETAMINOPHEN 325 MG TABLET (FP) PO ONE (18:50)
[2024-05-06] MEDS ORDERED: ACETAMINOPHEN 1000 MG/100 ML BAG IVPB PRN (23:20)
[2024-05-07] MEDS: ACETAMINOPHEN 1000 MG/100 ML BAG IVPB PRN (01:24)
[2024-05-07 10:09] LABS: BASO % 0.5 % (0-2.0); EOS % 1.1 % (0-4.5); HEMATOCRIT 26.1 % (32.4-45.2); HEMOGLOBIN 8.9 GM/dL (10.7-15.3); LYMPH % 8.2 % (8-40); MCH 28.6 pg (25.7-33.7); MEAN CELL VOLUME 84.2 fl (80-96); MEAN PLT VOLUME 8.6 fl (7.5-11.1); MONO % 8.3 % (3.8-10.2); NEUT % 81.9 % (42.8-82.8); PLATELET COUNT 141 10^3/uL (134-434); RDW 14.5 % (11.6-15.6); WHITE BLOOD COUNT 8.8 K/mm3 (4.0-10.0)
[2024-05-07 10:45] LABS: POTASSIUM 4.5 mmol/L (3.5-5.1)
[2024-05-07 10:50] LABS: BLOOD UREA NITROGEN 56.6 mg/dL (7-18); CALCIUM 8.7 mg/dL (8.5-10.1)
[2024-05-07 10:53] LABS: CREATININE 3.6 mg/dL (0.55-1.3)
[2024-05-07] MEDS: amLODIPine BESYLATE 5 MG TABLET (FP) PO SCH (12:48)
[2024-05-07] MEDS: LIDOCAINE 5% TOPICAL PATCH TP SCH (12:48)
[2024-05-07] MEDS: FUROSEMIDE 40 MG TABLET (FP) PO SCH (12:48)
[2024-05-07] MEDS: metoPROLOL SUCCINATE 25 MG TAB.SR.24H (FP) PO SCH (17:43)
[2024-05-07] MEDS: LIDOCAINE PATCH REMOVAL MC SCH (22:00)
[2024-05-07] MEDS: VALSARTAN 80 MG TABLET PO SCH (22:00)
[2024-05-07] MEDS: ATORVASTATIN CA 40 MG TABLET (FP) PO SCH (22:00)
[2024-05-08 14:53] VITALS: RESP 18
[2024-05-08] MEDS: METHYL SALICYLATE/MENTHOL 30 GM TUBE TP SCH (21:35)
[2024-05-09 10:36] VITALS: BP 153/62; PULSE 63; TEMP 98.4
[2024-05-09] MEDS: predniSONE 20 MG TABLET (UD) PO SCH (11:36)
[2024-05-09] MEDS ORDERED: INSULIN ASPART SLIDING SCALE (NOVOLOG) 1 VIAL SQ ONE (11:48)
== END 2024-05-09 13:41 | DRG 690 ==
LOC: JER 15:31 → JERBED 19:24 → J8W 05-05 20:45 → OBSVTOIN 05-06 14:02
PROVIDERS: ADMIT Internal Medicine; ATTEND Nurse Practitioner Family
DX: N39.0 Urinary tract infection, site not specified (principal); Z68.41 Body mass index [BMI] 40.0-44.9, adult; I13.0 Hypertensive heart and chronic kidney disease with heart failure and stage 1 through stage 4 chronic kidney disease, or unspecified chronic kidney disease; N18.4 Chronic kidney disease, stage 4 (severe); I50.32 Chronic diastolic (congestive) heart failure; Z16.12 Extended spectrum beta lactamase (ESBL) resistance; B96.1 Klebsiella pneumoniae [K. pneumoniae] as the cause of diseases classified elsewhere; E78.00 Pure hypercholesterolemia, unspecified; E66.01 Morbid (severe) obesity due to excess calories; M17.12 Unilateral primary osteoarthritis, left knee; E11.22 Type 2 diabetes mellitus with diabetic chronic kidney disease; E04.1 Nontoxic single thyroid nodule; D64.9 Anemia, unspecified; M11.262 Other chondrocalcinosis, left knee; Z96.643 Presence of artificial hip joint, bilateral
CPT/HCPCS: 36415; 73110-TC-LT-FY; 73130-TC-LT-FY; 73562-TC-LT-FY; 80048; 80053; 81003; 82728; 82962; 83036; 83540; 83550; 83735; 84100; 84550; 85025; 85045; 87086; 87186; 87635; 93005; 93010; 93971; 93971-TC; 97116-GP; 97161-GP; 99285-25; G0378; J0131; J1644

== ENCOUNTER 2024-05-15 01:20 | Inpatient (IN) | payer OTHER ==
[2024-05-15 02:04] LABS: HEMATOCRIT 28.7 % (32.4-45.2); HEMOGLOBIN 9.5 GM/dL (10.7-15.3); MCH 27.9 pg (25.7-33.7); MEAN CELL VOLUME 84.5 fl (80-96); MEAN PLT VOLUME 7.9 fl (7.5-11.1); PLATELET COUNT 218 10^3/uL (134-434); RDW 14.3 % (11.6-15.6); WHITE BLOOD COUNT 14.8 K/mm3 (4.0-10.0)
[2024-05-15 02:42] LABS: POTASSIUM 4.3 mmol/L (3.5-5.1)
[2024-05-15 02:44] LABS: CALCIUM 8.2 mg/dL (8.5-10.1)
[2024-05-15 02:48] LABS: CREATININE 5.4 mg/dL (0.55-1.3)
[2024-05-15 02:49] LABS: BILIRUBIN,TOTAL 0.3 mg/dL (0.2-1)
[2024-05-15 02:50] LABS: TOT PROT 6.7 g/dl (6.4-8.2)
[2024-05-15 03:50] LABS: VENOUS BASE EXCESS -11.2 mmol/L (-2-2); VENOUS O2 SATURATION 37.3 % (70-80); VENOUS PCO2 40.1 mmHg (38-52); VENOUS PH 7.215 (7.310-7.410)
[2024-05-15] MEDS: LACTATED RINGERS SOLUTION 1000 ML INFUS.BAG IV ONE (03:54)
[2024-05-15 04:43] LABS: EPI CELLS 23 /uL (0-25.1); HYALINE CASTS 3 /uL (0-3.1); URINE APPEARANCE TURBID; URINE BACTERIA 22 /uL (0-1359); URINE BILIRUBIN NEGATIVE (NEGATIVE); URINE COLOR YELLOW; URINE GLUCOSE (UA) NEGATIVE (NEGATIVE); URINE KETONE NEGATIVE (NEGATIVE); URINE LEUK ESTERASE 3+ (NEGATIVE); URINE NITRITE NEGATIVE (NEGATIVE); URINE PROTEIN 3+ (NEGATIVE); URINE UROBILINOGEN 0.2 mg/dL (0.2-1.0); URINE WBC 7157 /uL (0-25.8)
[2024-05-15] MEDS: SODIUM CHLORIDE 0.45% 1,000 ML IV SCH (04:46)
[2024-05-15] MEDS ORDERED: amLODIPine BESYLATE 5 MG TABLET (FP) ONE (10:07)
[2024-05-15] MEDS ORDERED: LIDOCAINE 5% TOPICAL PATCH ONE (10:07)
[2024-05-15] MEDS: LIDOCAINE 5% TOPICAL PATCH TP SCH (10:18)
[2024-05-15] MEDS: amLODIPine BESYLATE 5 MG TABLET (FP) PO SCH (10:19)
[2024-05-15 11:45] LABS: URINE RBC 183 /uL (0-23.9); YEAST PRESENT (NEGATIVE)
[2024-05-15] MEDS ORDERED: HEPARIN NA (PORCINE) 5,000 UNITS/ML 1ML VIAL ONE (14:25)
[2024-05-15] MEDS: HEPARIN NA (PORCINE) 5,000 UNITS/ML 1ML VIAL SQ SCH (14:40)
[2024-05-15] MEDS ORDERED: DEXTROSE 50%-WATER 25 GM/50 ML DISP.SYRIN ONE (16:56)
[2024-05-15] MEDS: DEXTROSE 50%-WATER - 25 GM/50 ML VIAL IVPUSH ONE (17:11)
[2024-05-15] MEDS: ERTAPENEM SODIUM 0.5 GM in SODIUM CHLORIDE 50 ML IVPB SCH (21:26)
[2024-05-15] MEDS: LIDOCAINE PATCH REMOVAL MC SCH (21:26)
[2024-05-15] MEDS: ATORVASTATIN CA 40 MG TABLET (FP) PO SCH (21:26)
[2024-05-16] MEDS: DEXTROSE 50%-WATER 25 GM/50 ML DISP.SYRIN IVPUSH PRN (02:53)
[2024-05-16] MEDS: DEXTROSE 10%-WATER - 1,000 ML IV SCH (02:54)
[2024-05-16] MEDS: DEXTROSE 50%-WATER 25 GM/50 ML DISP.SYRIN IVPUSH ONE (03:00)
[2024-05-16 12:02] LABS: BASO % 0.5 % (0-2.0); EOS % 2.4 % (0-4.5); HEMATOCRIT 25.9 % (32.4-45.2); HEMOGLOBIN 8.7 GM/dL (10.7-15.3); LYMPH % 6.3 % (8-40); MCH 28.2 pg (25.7-33.7); MCHC 33.6 g/dl (32.0-36.0); MEAN PLT VOLUME 7.9 fl (7.5-11.1); MONO % 5.7 % (3.8-10.2); NEUT % 85.1 % (42.8-82.8); PLATELET COUNT 210 10^3/uL (134-434); RBC 3.08 M/mm3 (3.60-5.2); RDW 14.7 % (11.6-15.6); WHITE BLOOD COUNT 11.7 K/mm3 (4.0-10.0)
[2024-05-16 12:07] LABS: INR 1.04 (0.83-1.09); PROTHROMBIN TIME (PATIENT) 11.7 SEC (9.7-13.0)
[2024-05-16 12:10] LABS: ACTIVATED PTT 30.2 SECONDS (25.2-36.5)
[2024-05-16 12:35] LABS: CHLORIDE 113 mmol/L (98-107); POTASSIUM 4.8 mmol/L (3.5-5.1); SODIUM 141 mmol/L (136-145)
[2024-05-16 12:37] LABS: CALCIUM 8.2 mg/dL (8.5-10.1)
[2024-05-16 12:38] LABS: ALBUMIN 2.5 g/dl (3.4-5.0); ANION GAP 11 mmol/L (4-13); BLOOD UREA NITROGEN 87.9 mg/dL (7-18); CO2 17 mmol/L (21-32); MAGNESIUM 1.9 mg/dL (1.8-2.4)
[2024-05-16 12:41] LABS: SGOT/AST 15 U/L (15-37); SGPT/ALT 13 U/L (13-61)
[2024-05-16 12:42] LABS: CREATININE 4.6 mg/dL (0.55-1.3); PHOSPHOROUS 7.2 mg/dL (2.5-4.9)
[2024-05-16 12:43] LABS: BILIRUBIN,TOTAL 0.3 mg/dL (0.2-1); TOT PROT 5.9 g/dl (6.4-8.2)
[2024-05-16 12:44] LABS: ALK PHOS 97 U/L (45-117)
[2024-05-16 12:48] LABS: GLUCOSE,RANDOM 47 mg/dL (74-106)
[2024-05-16 14:18] LABS: EPI CELLS 7 /uL (0-25.1); HYALINE CASTS 0 /uL (0-3.1); PH,URINE 5.5 (5.0-8.0); URINE APPEARANCE TURBID; URINE BACTERIA 7630 /uL (0-1359); URINE BILIRUBIN NEGATIVE (NEGATIVE); URINE COLOR DK YELLOW; URINE GLUCOSE (UA) NEGATIVE (NEGATIVE); URINE KETONE NEGATIVE (NEGATIVE); URINE LEUK ESTERASE 3+ (NEGATIVE); URINE NITRITE NEGATIVE (NEGATIVE); URINE PROTEIN 3+ (NEGATIVE); URINE WBC 2247 /uL (0-25.8)
[2024-05-16 15:26] LABS: URINE RBC 26.8 /uL (0-23.9)
[2024-05-17] MEDS: DEXTROSE 50%-WATER 25 GM/50 ML DISP.SYRIN IVPUSH ONE (02:30)
[2024-05-17] MEDS: DEXTROSE 10%-WATER - 1,000 ML IV SCH ×2 (02:49→03:45)
[2024-05-17] MEDS: INSULIN ASPART SLIDING SCALE (NOVOLOG) 1 VIAL SQ SCH (06:45)
[2024-05-17 10:09] LABS: BASO % 0.6 % (0-2.0); EOS % 3.3 % (0-4.5); HEMATOCRIT 23.6 % (32.4-45.2); HEMOGLOBIN 8.1 GM/dL (10.7-15.3); LYMPH % 6.8 % (8-40); MCH 29.1 pg (25.7-33.7); MCHC 34.3 g/dl (32.0-36.0); MEAN CELL VOLUME 84.8 fl (80-96); MEAN PLT VOLUME 7.9 fl (7.5-11.1); MONO % 7.6 % (3.8-10.2); NEUT % 81.7 % (42.8-82.8); PLATELET COUNT 194 10^3/uL (134-434); RBC 2.78 M/mm3 (3.60-5.2); RDW 14.6 % (11.6-15.6); WHITE BLOOD COUNT 9.7 K/mm3 (4.0-10.0)
[2024-05-17 10:25] LABS: POTASSIUM 4.8 mmol/L (3.5-5.1)
[2024-05-17 10:27] LABS: ALBUMIN 2.4 g/dl (3.4-5.0); BLOOD UREA NITROGEN 90.7 mg/dL (7-18)
[2024-05-17 10:30] LABS: CREATININE 4.6 mg/dL (0.55-1.3)
[2024-05-17 10:31] LABS: BILIRUBIN,TOTAL 0.4 mg/dL (0.2-1)
[2024-05-17 10:32] LABS: TOT PROT 5.8 g/dl (6.4-8.2)
[2024-05-17] MEDS: amLODIPine BESYLATE 5 MG TABLET (FP) PO SCH (10:38)
[2024-05-17 14:09] LABS: INSULIN 54.6 uIU/mL (2.6-24.9)
[2024-05-17] MEDS: ACETAMINOPHEN 1000 MG/100 ML BAG IVPB ONE (14:49)
[2024-05-17] MEDS: SODIUM BICARBONATE 650 MG TABLET PO SCH (15:51)
[2024-05-17] MEDS ORDERED: oxyCODONE HCL 5 MG TABLET PO PRN (17:25)
[2024-05-17] MEDS: ACETAMINOPHEN 325 MG TABLET (FP) PO SCH (20:39)
[2024-05-17 22:19] LABS: URIC ACID 12.5 mg/dL (2.6-7.2)
[2024-05-18 10:10] LABS: BASO % 0.5 % (0-2.0); EOS % 3.3 % (0-4.5); HEMATOCRIT 21.7 % (32.4-45.2); HEMOGLOBIN 7.2 GM/dL (10.7-15.3); MCH 28.5 pg (25.7-33.7); MCHC 33.2 g/dl (32.0-36.0); MEAN CELL VOLUME 85.8 fl (80-96); MONO % 8.1 % (3.8-10.2); NEUT % 80.1 % (42.8-82.8); PLATELET COUNT 169 10^3/uL (134-434); RBC 2.53 M/mm3 (3.60-5.2); RDW 14.7 % (11.6-15.6); WHITE BLOOD COUNT 10.1 K/mm3 (4.0-10.0)
[2024-05-18 10:28] LABS: POTASSIUM 4.8 mmol/L (3.5-5.1)
[2024-05-18 10:32] LABS: BLOOD UREA NITROGEN 83.2 mg/dL (7-18); CALCIUM 8.2 mg/dL (8.5-10.1)
[2024-05-18 10:33] LABS: MAGNESIUM 1.9 mg/dL (1.8-2.4)
[2024-05-18 10:35] LABS: ALBUMIN 2.1 g/dl (3.4-5.0); CREATININE 4.8 mg/dL (0.55-1.3); PHOSPHOROUS 7.4 mg/dL (2.5-4.9)
[2024-05-18 10:36] LABS: BILIRUBIN,TOTAL 0.4 mg/dL (0.2-1)
[2024-05-18 10:37] LABS: TOT PROT 5.4 g/dl (6.4-8.2)
[2024-05-19 10:12] LABS: BASO % 0.4 % (0-2.0); EOS % 3.6 % (0-4.5); HEMOGLOBIN 7.6 GM/dL (10.7-15.3); LYMPH % 4.3 % (8-40); MCH 28.2 pg (25.7-33.7); MEAN CELL VOLUME 85.3 fl (80-96); MEAN PLT VOLUME 7.8 fl (7.5-11.1); MONO % 6.2 % (3.8-10.2); NEUT % 85.5 % (42.8-82.8); PLATELET COUNT 197 10^3/uL (134-434); RDW 14.6 % (11.6-15.6); WHITE BLOOD COUNT 13.5 K/mm3 (4.0-10.0)
[2024-05-19 10:38] LABS: POTASSIUM 4.7 mmol/L (3.5-5.1)
[2024-05-19 10:41] LABS: ALBUMIN 2.2 g/dl (3.4-5.0)
[2024-05-19 10:42] LABS: BLOOD UREA NITROGEN 86.7 mg/dL (7-18)
[2024-05-19 10:45] LABS: CREATININE 4.9 mg/dL (0.55-1.3); MAGNESIUM 1.9 mg/dL (1.8-2.4); PHOSPHOROUS 7.4 mg/dL (2.5-4.9)
[2024-05-19 10:46] LABS: BILIRUBIN,TOTAL 0.4 mg/dL (0.2-1); TOT PROT 5.8 g/dl (6.4-8.2)
[2024-05-19 10:51] LABS: CALCIUM 8.7 mg/dL (8.5-10.1)
[2024-05-19] MEDS: LIDOCAINE PATCH REMOVAL MC SCH (21:53)
[2024-05-20 10:07] LABS: HEMATOCRIT 21.3 % (32.4-45.2); HEMOGLOBIN 7.1 GM/dL (10.7-15.3); MCH 28.2 pg (25.7-33.7); MCHC 33.2 g/dl (32.0-36.0); MEAN CELL VOLUME 85.1 fl (80-96); MEAN PLT VOLUME 7.9 fl (7.5-11.1); PLATELET COUNT 173 10^3/uL (134-434); RDW 14.8 % (11.6-15.6); WHITE BLOOD COUNT 13.2 K/mm3 (4.0-10.0)
[2024-05-20 10:22] LABS: POTASSIUM 4.6 mmol/L (3.5-5.1)
[2024-05-20 10:25] LABS: ALBUMIN 2.1 g/dl (3.4-5.0); BLOOD UREA NITROGEN 90.4 mg/dL (7-18); CALCIUM 8.7 mg/dL (8.5-10.1)
[2024-05-20 10:29] LABS: CREATININE 4.6 mg/dL (0.55-1.3)
[2024-05-20 10:30] LABS: BILIRUBIN,TOTAL 0.5 mg/dL (0.2-1); TOT PROT 5.6 g/dl (6.4-8.2)
[2024-05-20] MEDS: CEFAZOLIN 500 MG in DEXTROSE 5%-WATER - 50 ML IVPB SCH (14:53)
[2024-05-20 18:47] LABS: BASO % 0.4 % (0-2.0); EOS % 4.5 % (0-4.5); HEMATOCRIT 21.6 % (32.4-45.2); HEMOGLOBIN 7.3 GM/dL (10.7-15.3); LYMPH % 5.4 % (8-40); MCH 28.4 pg (25.7-33.7); MCHC 33.6 g/dl (32.0-36.0); MEAN CELL VOLUME 84.8 fl (80-96); MEAN PLT VOLUME 7.9 fl (7.5-11.1); MONO % 5.3 % (3.8-10.2); NEUT % 84.4 % (42.8-82.8); PLATELET COUNT 198 10^3/uL (134-434); RBC 2.55 M/mm3 (3.60-5.2); RDW 14.8 % (11.6-15.6); WHITE BLOOD COUNT 13.3 K/mm3 (4.0-10.0)
[2024-05-21] MEDS: ALLOPURINOL 100 MG TABLET (FP) PO ONE (06:00)
[2024-05-21 12:48] LABS: ERYTHROCYTE SEDIMENTATION RATE > 140 mm/hr (0-30)
[2024-05-21 12:54] LABS: MCH 27.8 pg (25.7-33.7); MCHC 32.8 g/dl (32.0-36.0); MEAN CELL VOLUME 84.8 fl (80-96); MEAN PLT VOLUME 8.1 fl (7.5-11.1); PLATELET COUNT 206 10^3/uL (134-434); RBC 2.48 M/mm3 (3.60-5.2); RDW 14.6 % (11.6-15.6)
[2024-05-21 13:07] LABS: HEMOGLOBIN 6.9 GM/dL (10.7-15.3)
[2024-05-21 15:01] LABS: POTASSIUM 4.6 mmol/L (3.5-5.1)
[2024-05-21 15:04] LABS: ALBUMIN 2.1 g/dl (3.4-5.0); BLOOD UREA NITROGEN 79.5 mg/dL (7-18); CALCIUM 8.5 mg/dL (8.5-10.1)
[2024-05-21 15:07] LABS: CREATININE 4.4 mg/dL (0.55-1.3)
[2024-05-21 15:09] LABS: BILIRUBIN,TOTAL 0.3 mg/dL (0.2-1)
[2024-05-21 16:00] LABS: TOT PROT 5.5 g/dl (6.4-8.2)
[2024-05-21] MEDS: EPOETIN ALFA-EPBX 10,000 UNIT/ML VIAL SQ ONE (16:45)
[2024-05-22] MEDS: PIPERACILLIN/TAZOB 2.25 GM 2.25 GM/50 ML BAG IVPB SCH (02:59)
[2024-05-22 10:28] LABS: BASO % 0.4 % (0-2.0); EOS % 3.9 % (0-4.5); HEMATOCRIT 25.4 % (32.4-45.2); HEMOGLOBIN 8.4 GM/dL (10.7-15.3); LYMPH % 4.5 % (8-40); MCH 27.5 pg (25.7-33.7); MEAN CELL VOLUME 83.5 fl (80-96); MONO % 4.9 % (3.8-10.2); NEUT % 86.3 % (42.8-82.8); PLATELET COUNT 210 10^3/uL (134-434); RBC 3.04 M/mm3 (3.60-5.2); RDW 16.2 % (11.6-15.6); WHITE BLOOD COUNT 14.2 K/mm3 (4.0-10.0)
[2024-05-22 10:46] LABS: POTASSIUM 4.2 mmol/L (3.5-5.1)
[2024-05-22 10:51] LABS: ALBUMIN 2.1 g/dl (3.4-5.0); CALCIUM 7.9 mg/dL (8.5-10.1)
[2024-05-22 10:52] LABS: BLOOD UREA NITROGEN 67.2 mg/dL (7-18); MAGNESIUM 1.8 mg/dL (1.8-2.4)
[2024-05-22 10:54] LABS: BILIRUBIN,TOTAL 0.4 mg/dL (0.2-1); CREATININE 3.9 mg/dL (0.55-1.3); PHOSPHOROUS 4.2 mg/dL (2.5-4.9); TOT PROT 6.2 g/dl (6.4-8.2)
[2024-05-22 18:43] LABS: BASO % 0.6 % (0-2.0); EOS % 5.1 % (0-4.5); HEMOGLOBIN 7.8 GM/dL (10.7-15.3); LYMPH % 6.3 % (8-40); MCH 26.9 pg (25.7-33.7); MCHC 32.6 g/dl (32.0-36.0); MEAN CELL VOLUME 82.7 fl (80-96); MEAN PLT VOLUME 7.6 fl (7.5-11.1); MONO % 5.2 % (3.8-10.2); NEUT % 82.8 % (42.8-82.8); PLATELET COUNT 208 10^3/uL (134-434); RDW 16.2 % (11.6-15.6); WHITE BLOOD COUNT 14.6 K/mm3 (4.0-10.0)
[2024-05-23 00:47] LABS: EPI CELLS 10 /uL (0-25.1); HYALINE CASTS 0 /uL (0-3.1); PH,URINE 6.5 (5.0-8.0); URINE APPEARANCE TURBID; URINE BACTERIA 6115 /uL (0-1359); URINE BILIRUBIN 3+ (NEGATIVE); URINE COLOR DK YELLOW; URINE GLUCOSE (UA) TRACE (NEGATIVE); URINE KETONE NEGATIVE (NEGATIVE); URINE LEUK ESTERASE 3+ (NEGATIVE); URINE NITRITE NEGATIVE (NEGATIVE); URINE PROTEIN 3+ (NEGATIVE); URINE WBC 90 /uL (0-25.8)
[2024-05-23 01:35] LABS: URINE CRYSTALS NONE SEEN /hpf; URINE RBC 99.1 /uL (0-23.9)
[2024-05-23 01:36] LABS: YEAST PRESENT (NEGATIVE)
[2024-05-23 08:49] VITALS: RESP 18
[2024-05-23 10:15] LABS: POTASSIUM 4.9 mmol/L (3.5-5.1)
[2024-05-23 10:23] LABS: BLOOD UREA NITROGEN 71.3 mg/dL (7-18)
[2024-05-23 10:25] LABS: ALBUMIN 2.2 g/dl (3.4-5.0)
[2024-05-23 10:26] LABS: MAGNESIUM 2.2 mg/dL (1.8-2.4)
[2024-05-23 10:28] LABS: BILIRUBIN,TOTAL 0.4 mg/dL (0.2-1); CREATININE 3.9 mg/dL (0.55-1.3)
[2024-05-23 10:29] LABS: PHOSPHOROUS 4.2 mg/dL (2.5-4.9)
[2024-05-23] MEDS: PIPERACILLIN/TAZOB 2.25 GM 2.25 GM/50 ML BAG IVPB SCH (11:29)
[2024-05-23 15:16] LABS: MCH 26.9 pg (25.7-33.7); MEAN PLT VOLUME 7.9 fl (7.5-11.1); PLATELET COUNT 215 10^3/uL (134-434); RBC 3.33 M/mm3 (3.60-5.2); RDW 16.4 % (11.6-15.6); WHITE BLOOD COUNT 14.4 K/mm3 (4.0-10.0)
[2024-05-24 09:46] LABS: HEMATOCRIT 28.2 % (32.4-45.2); HEMOGLOBIN 9.1 GM/dL (10.7-15.3); MCH 27.2 pg (25.7-33.7); MCHC 32.1 g/dl (32.0-36.0); MEAN CELL VOLUME 84.7 fl (80-96); MEAN PLT VOLUME 8.1 fl (7.5-11.1); PLATELET COUNT 244 10^3/uL (134-434); RBC 3.33 M/mm3 (3.60-5.2); RDW 15.8 % (11.6-15.6); WHITE BLOOD COUNT 16.9 K/mm3 (4.0-10.0)
[2024-05-24 10:11] LABS: POTASSIUM 4.5 mmol/L (3.5-5.1)
[2024-05-24 10:16] LABS: ALBUMIN 2.6 g/dl (3.4-5.0); BLOOD UREA NITROGEN 64.8 mg/dL (7-18); CALCIUM 9.2 mg/dL (8.5-10.1)
[2024-05-24 10:20] LABS: BILIRUBIN,TOTAL 0.6 mg/dL (0.2-1); CREATININE 3.7 mg/dL (0.55-1.3)
[2024-05-24 10:21] LABS: TOT PROT 6.8 g/dl (6.4-8.2)
[2024-05-24 11:45] VITALS: BMI 43.7
[2024-05-24] MEDS: predniSONE 20 MG TABLET (UD) PO SCH (14:52)
[2024-05-25 09:01] LABS: POTASSIUM 5.1 mmol/L (3.5-5.1)
[2024-05-25 09:06] LABS: ALBUMIN 2.4 g/dl (3.4-5.0)
[2024-05-25 09:07] LABS: MAGNESIUM 2.1 mg/dL (1.8-2.4)
[2024-05-25 09:09] LABS: CREATININE 3.6 mg/dL (0.55-1.3); PHOSPHOROUS 4.2 mg/dL (2.5-4.9)
[2024-05-25 09:10] LABS: BILIRUBIN,TOTAL 0.8 mg/dL (0.2-1); TOT PROT 6.3 g/dl (6.4-8.2)
[2024-05-25 09:22] VITALS: BP 140/77; PULSE 114; TEMP 98.6
[2024-05-25 11:07] LABS: HEMATOCRIT 25.4 % (32.4-45.2); HEMOGLOBIN 8.1 GM/dL (10.7-15.3); MCH 27.3 pg (25.7-33.7); MEAN CELL VOLUME 85.1 fl (80-96); MEAN PLT VOLUME 8.2 fl (7.5-11.1); PLATELET COUNT 227 10^3/uL (134-434); RBC 2.99 M/mm3 (3.60-5.2); RDW 15.3 % (11.6-15.6); WHITE BLOOD COUNT 15.8 K/mm3 (4.0-10.0)
[2024-05-25 12:24] LABS: ANISOCYTOSIS 2+; MACROCYTOSIS 1+
== END 2024-05-25 13:21 | disposition home or self-care (01) | DRG 638 ==
LOC: JER 01:20 → JERBED 03:32 → J6S 20:18
PROVIDERS: ADMIT Internal Medicine; ATTEND Internal Medicine
DX: E11.649 Type 2 diabetes mellitus with hypoglycemia without coma (principal); E87.20 Acidosis, unspecified; I13.0 Hypertensive heart and chronic kidney disease with heart failure and stage 1 through stage 4 chronic kidney disease, or unspecified chronic kidney disease; I50.32 Chronic diastolic (congestive) heart failure; R44.3 Hallucinations, unspecified; Z68.41 Body mass index [BMI] 40.0-44.9, adult; E78.5 Hyperlipidemia, unspecified; E11.22 Type 2 diabetes mellitus with diabetic chronic kidney disease; N17.9 Acute kidney failure, unspecified; N18.4 Chronic kidney disease, stage 4 (severe); D64.9 Anemia, unspecified; N31.9 Neuromuscular dysfunction of bladder, unspecified; E66.01 Morbid (severe) obesity due to excess calories; D72.829 Elevated white blood cell count, unspecified; M25.562 Pain in left knee; M17.12 Unilateral primary osteoarthritis, left knee; M11.262 Other chondrocalcinosis, left knee; G47.33 Obstructive sleep apnea (adult) (pediatric)
CPT/HCPCS: 36415; 36430; 70450-TC; 73130-TC-RT-FY; 73560-TC-LT-FY; 74176-TC; 76775-TC; 76856-TC; 80048; 80053; 80299; 81003; 82272; 82533; 82550; 82607; 82728; 82746; 82803; 82962; 83036; 83525; 83527; 83540; 83550; 83605; 83735; 84100; 84155; 84165; 84439; 84443; 84484; 84550; 85025; 85027; 85045; 85610; 85651; 85730; 86038; 86140; 86200; 86431; 86618; 86705; 86803; 86850; 86900; 86901; 86922; 87086; 87340; 87517; 93005; 93010; 97116-GP; 97162-GP; 99285-25; J0131; J1644; P9058; Q5106

== ENCOUNTER 2024-12-19 10:33 | Emergency (ER) | payer OTHER, MEDICARE ==
[2024-12-19 10:56] VITALS: BMI 38.6
[2024-12-19 11:26] LABS: ABSOLUTE IMMATURE GRANULOCYTES 0.03 x10^3/uL (0.0-0.031); BASOPHILS # 0.06 x10^3/uL (0.01-0.08); EOSINOPHIL % 4.3 % (0.7-5.8); EOSINOPHILS # 0.33 x10^3/uL (0.04-0.36); HEMATOCRIT 24.7 % (34.1-44.9); HEMOGLOBIN 7.8 g/dL (11.2-15.7); MCHC 31.6 g/dl (32.2-35.5); MEAN CELL VOLUME 90.8 fl (79.4-94.8); MEAN PLT VOLUME 9.9 fl (9.4-12.3); MONOCYTE # 0.55 x10^3/uL (0.24-0.86); MONOCYTE % 7.2 % (4.7-12.5); PLATELET COUNT 144 x10^3/uL (182-369)
[2024-12-19 11:34] LABS: INR 1.15 (0.83-1.09); PROTHROMBIN TIME (PATIENT) 12.5 SEC (9.7-13.0)
[2024-12-19 11:48] LABS: ALBUMIN 3.2 g/dl (3.4-5.0); CALCIUM 8.9 mg/dL (8.5-10.1)
[2024-12-19 11:52] LABS: CREATININE 4.8 mg/dL (0.55-1.3)
[2024-12-19 11:53] LABS: BILIRUBIN,TOTAL 0.6 mg/dL (0.2-1)
[2024-12-19 12:04] LABS: TOT PROT 6.8 g/dl (6.4-8.2)
[2024-12-19 12:13] LABS: IRON SERUM 53 ug/dL (50-175); TOTAL IRON BINDING CAPACITY 211 ug/dL (250-450)
[2024-12-19 13:36] LABS: EPI CELLS 25 /uL (0-25.1); HYALINE CASTS 0 /uL (0-3.1); PH,URINE 5.5 (5.0-8.0); URINE APPEARANCE TURBID; URINE BACTERIA >9,000 /uL (0-1359); URINE BILIRUBIN NEGATIVE (NEGATIVE); URINE COLOR YELLOW; URINE GLUCOSE (UA) NEGATIVE (NEGATIVE); URINE KETONE NEGATIVE (NEGATIVE); URINE LEUK ESTERASE 3+ (NEGATIVE); URINE NITRITE NEGATIVE (NEGATIVE); URINE PROTEIN 2+ (NEGATIVE); URINE RBC 38 /uL (0-23.9); URINE UROBILINOGEN 0.2 mg/dL (0.2-1.0); URINE WBC 2716 /uL (0-25.8)
[2024-12-19] MEDS: EPOETIN ALFA-EPBX 10,000 UNIT/ML VIAL SQ ONE (14:03)
[2024-12-19 15:32] VITALS: BP 138/62; PULSE 65; RESP 16; TEMP 98.1
== END 2024-12-19 15:55 | disposition home or self-care (01) ==
LOC: JER 10:33
PROC: 3E013GC Introduction of Other Therapeutic Substance into Subcutaneous Tissue, Percutaneous Approach (ICD-10-PCS; principal; 2024-12-19)
DX: I13.0 Hypertensive heart and chronic kidney disease with heart failure and stage 1 through stage 4 chronic kidney disease, or unspecified chronic kidney disease (principal); I50.30 Unspecified diastolic (congestive) heart failure; E11.22 Type 2 diabetes mellitus with diabetic chronic kidney disease; N18.4 Chronic kidney disease, stage 4 (severe)
CPT/HCPCS: 36415; 71046-TC-FY; 76775-TC; 76856-TC; 80053; 81003; 82728; 83540; 83550; 85025; 85610; 85730; 86850; 86900; 86901; 87086; 99285-25; Q5106